=== PATIENT | male | born 1940 | race Caucasian/White ===

== ENCOUNTER 2018-04-29 11:08 | Outpatient (REF) | payer BC, SELFPAY ==
[2018-04-29 21:08] LABS: Abs Immature Grans 0.01 k/cumm (0.0-0.09); Absolute Basophil Count 0.03 k/cumm (0.0-0.2); Absolute Eosinophil Count 0.13 k/cumm (0.0-0.7); Absolute Lymphocyte Count 1.02 k/cumm (1.2-3.4); Absolute Neutrophil Count 2.83 k/cumm (1.2-6.7); Basophils % 0.6; Eosinophils % 2.8; Immature Grans % 0.2; Lymphocytes % 22.1; Mean Corp. HGB Concentration 34.8 g/dL (32.0-36.0); Mean Corpuscular Hemoglobin 29.9 pg (27.0-33.0); Mean Corpuscular Volume 85.8 fL (80-95); Mean Platelet Volume 10.3 fL (8.0-11.0); Neutrophils % 61.3; Platelet Count 180 x1000/uL (130-400); RBC 5.36 m/cumm (4.50-6.00); RBC Distribution Width 13.6 % (11.8-14.1); White Blood Cell Count 4.62 k/cumm (4.4-10.8)
[2018-04-29 21:27] LABS: ALT 48 U/L (12-78); AST 29 U/L (15-37); Albumin 3.9 g/dL (3.4-5.0); Alkaline Phosphatase 77 U/L (46-116); Anion Gap 9.7 mmol/L (3-11); BUN 24 mg/dL (7-18); Bilirubin, Total 0.6 mg/dL (0.2-1.0); CO2 29.3 mmol/L (21.0-32.0); Calcium 9.2 mg/dL (8.5-10.1); Chloride 98 mmol/L (98-107); Estimated GFR 58.71 (mL/min/1.73m2); Glucose 95 mg/dL (70-100); Potassium 3.6 mmol/L (3.5-5.1); Sodium 137 mmol/L (136-145); Total Protein 6.9 g/dL (6.4-8.2)
== END 2018-04-29 11:28 ==
LOC: LBN 11:08
PROVIDERS: PCP Internal Medicine; Visit Provider Internal Medicine
DX: M06.00 Rheumatoid arthritis without rheumatoid factor, unspecified site (principal); Z79.899 Other long term (current) drug therapy
CPT/HCPCS: 80053; 85025

== ENCOUNTER 2018-06-16 09:57 | Outpatient (REF) | payer BC, SELFPAY ==
[2018-06-16 16:32] LABS: BUN 14 mg/dL (7-18); CREATININE 0.92 mg/dL (0.70-1.30); TSH 3.51 uIU/mL (0.358-3.74)
[2018-06-16 16:45] LABS: Bilirubin Negative (Negative); Blood Negative (Negative); Clarity Clear; Glucose Negative (Negative); Ketones Negative (Negative); Leukocyte Esterase Negative (Negative); Nitrite Negative (Negative); Urobilinogen 0.2 EU/dL (Up TO 0.2); pH 6.5 (5-8)
[2018-06-16 16:58] LABS: Bacteria Few HPF (Negative); Epithelial Cells Few HPF (Negative); Other Cells Few Transitional (Negative); WBC 0-2 HPF (0-5)
[2018-06-16 16:59] LABS: C & S Indicated? No; Casts 0-2 Hyaline LPF (Negative); Crystals Negative HPF (Negative); Mucus Moderate (Negative)
== END 2018-06-16 10:17 ==
LOC: NCHCN 09:57
PROVIDERS: PCP Internal Medicine; Visit Provider Internal Medicine
DX: M06.00 Rheumatoid arthritis without rheumatoid factor, unspecified site (principal); R53.82 Chronic fatigue, unspecified
CPT/HCPCS: 84520; 81003; 81015; 82565; 84443

== ENCOUNTER 2018-11-10 11:44 | Outpatient (REF) | payer BC, SELFPAY ==
[2018-11-10 21:47] LABS: Absolute Basophil Count 0.01 k/cumm (0.0-0.2); Absolute Eosinophil Count 0.08 k/cumm (0.0-0.7); Absolute Lymphocyte Count 1.07 k/cumm (1.2-3.4); Absolute Monocyte Count 0.44 k/cumm (0.11-0.7); Absolute Neutrophil Count 2.49 k/cumm (1.2-6.7); Basophils % 0.2; HCT 45.8 % (40.0-50.0); HGB 15.9 g/dL (13.5-17.5); Lymphocytes % 26.2; Mean Corp. HGB Concentration 34.7 g/dL (32.0-36.0); Mean Corpuscular Hemoglobin 30.2 pg (27.0-33.0); Mean Corpuscular Volume 86.9 fL (80-95); Mean Platelet Volume 10.4 fL (8.0-11.0); Monocytes % 10.8; Neutrophils % 60.8; Platelet Count 191 x1000/uL (130-400); RBC 5.27 m/cumm (4.50-6.00); White Blood Cell Count 4.09 k/cumm (4.4-10.8)
[2018-11-10 22:23] LABS: ESR 18 MM/HR (1-20)
[2018-11-10 23:19] LABS: ALT 40 U/L (12-78); AST 25 U/L (15-37); Alkaline Phosphatase 75 U/L (46-116); Anion Gap 9.4 mmol/L (3-11); BUN 19 mg/dL (7-18); Bilirubin, Total 0.6 mg/dL (0.2-1.0); CO2 28.6 mmol/L (21.0-32.0); CREATININE 1.06 mg/dL (0.70-1.30); Calcium 9.1 mg/dL (8.5-10.1); Chloride 99 mmol/L (98-107); Glucose 96 mg/dL (70-100); Potassium 4.2 mmol/L (3.5-5.1); Sodium 137 mmol/L (136-145); TSH 2.51 uIU/mL (0.358-3.74); Total Protein 7.3 g/dL (6.4-8.2)
[2018-11-10 23:32] LABS: C-Reactive Protein 0.38 mg/dL (0.0-0.3); Creatine Kinase 78 U/L (39-308)
== END 2018-11-10 12:04 ==
LOC: NCHCN 11:44
PROVIDERS: PCP Internal Medicine; Visit Provider Internal Medicine
DX: M06.00 Rheumatoid arthritis without rheumatoid factor, unspecified site (principal); Z79.899 Other long term (current) drug therapy; R53.83 Other fatigue; M79.10 Myalgia, unspecified site
CPT/HCPCS: 80053; 82550; 85652; 84443; 85025; 86140

== ENCOUNTER 2019-05-04 21:25 | Outpatient (REF) | payer BC, SELFPAY ==
[2019-05-04 21:43] LABS: Abs Immature Grans 0.01 k/cumm (0.0-0.09); Absolute Basophil Count 0.01 k/cumm (0.0-0.2); Absolute Eosinophil Count 0.07 k/cumm (0.0-0.7); Absolute Lymphocyte Count 0.96 k/cumm (1.2-3.4); Absolute Monocyte Count 0.43 k/cumm (0.11-0.7); Absolute Neutrophil Count 2.14 k/cumm (1.2-6.7); Basophils % 0.3; Eosinophils % 1.9; HCT 47.1 % (40.0-50.0); HGB 16.1 g/dL (13.5-17.5); Immature Grans % 0.3; Lymphocytes % 26.5; Mean Corp. HGB Concentration 34.2 g/dL (32.0-36.0); Mean Corpuscular Hemoglobin 29.6 pg (27.0-33.0); Mean Corpuscular Volume 86.6 fL (80-95); Mean Platelet Volume 10.4 fL (8.0-11.0); Monocytes % 11.9; Neutrophils % 59.1; Platelet Count 233 x1000/uL (130-400); RBC 5.44 m/cumm (4.50-6.00); RBC Distribution Width 13.7 % (11.8-14.1); White Blood Cell Count 3.62 k/cumm (4.4-10.8)
[2019-05-04 21:54] LABS: ALT 41 U/L (16-63); AST 26 U/L (15-37); Alkaline Phosphatase 72 U/L (46-116); BUN 17 mg/dL (7-18); Bilirubin, Total 0.7 mg/dL (0.2-1.0); CREATININE 1.09 mg/dL (0.70-1.30); Calcium 9.3 mg/dL (8.5-10.1); Chloride 98 mmol/L (98-107); Glucose 95 mg/dL (70-100); Potassium 4.2 mmol/L (3.5-5.1); Sodium 137 mmol/L (136-145); Total Protein 7.4 g/dL (6.4-8.2)
== END 2019-05-04 21:45 ==
LOC: LBN 21:25
PROVIDERS: PCP Internal Medicine; Visit Provider Internal Medicine
DX: M06.00 Rheumatoid arthritis without rheumatoid factor, unspecified site (principal); Z79.899 Other long term (current) drug therapy
CPT/HCPCS: 80053; 85025

== ENCOUNTER 2019-08-31 14:09 | Outpatient (REF) | payer BC, SELFPAY ==
[2019-08-31 20:47] LABS: Abs Immature Grans 0.01 k/cumm (0.0-0.09); Absolute Basophil Count 0.01 k/cumm (0.0-0.2); Absolute Eosinophil Count 0.12 k/cumm (0.0-0.7); Absolute Lymphocyte Count 0.92 k/cumm (1.2-3.4); Absolute Monocyte Count 0.61 k/cumm (0.11-0.7); Absolute Neutrophil Count 3.65 k/cumm (1.2-6.7); Basophils % 0.2; Eosinophils % 2.3; HCT 44.1 % (40.0-50.0); HGB 15.6 g/dL (13.5-17.5); Immature Grans % 0.2 %; Lymphocytes % 17.3; Mean Corp. HGB Concentration 35.4 g/dL (32.0-36.0); Mean Corpuscular Hemoglobin 30.6 pg (27.0-33.0); Mean Corpuscular Volume 86.5 fL (80-95); Monocytes % 11.5; Neutrophils % 68.5; Platelet Count 238 x1000/uL (130-400); RBC Distribution Width 13.7 % (11.8-14.1); White Blood Cell Count 5.32 k/cumm (4.4-10.8)
[2019-08-31 21:00] LABS: ALT 43 U/L (16-63); AST 34 U/L (15-37); Albumin 4.1 g/dL (3.4-5.0); Alkaline Phosphatase 78 U/L (46-116); Anion Gap 9.4 mmol/L (3-11); BUN 16 mg/dL (7-18); Bilirubin, Total 0.9 mg/dL (0.2-1.0); CO2 29.6 mmol/L (21.0-32.0); CREATININE 0.93 mg/dL (0.70-1.30); Calcium 9.5 mg/dL (8.5-10.1); Chloride 100 mmol/L (98-107); Glucose 102 mg/dL (74-106); Potassium 3.7 mmol/L (3.5-5.1); Sodium 139 mmol/L (136-145); Total Protein 7.5 g/dL (6.4-8.2)
== END 2019-08-31 14:29 ==
LOC: NCHCN 14:09
PROVIDERS: PCP Internal Medicine; Visit Provider Internal Medicine
DX: D72.819 Decreased white blood cell count, unspecified (principal); R53.83 Other fatigue; M06.00 Rheumatoid arthritis without rheumatoid factor, unspecified site
CPT/HCPCS: 80053; 85025

== ENCOUNTER 2020-03-02 08:28 | Outpatient (REF) | payer BC, SELFPAY ==
[2020-03-02 20:23] LABS: Abs Immature Grans 0.02 10^3/uL (0.0-0.06); Absolute Basophil Count 0.02 10^3/uL (0.0-0.2); Absolute Eosinophil Count 0.14 10^3/uL (0.0-0.7); Absolute Lymphocyte Count 1.13 10^3/uL (1.2-3.4); Absolute Monocyte Count 0.87 10^3/uL (0.1-0.8); Absolute Neutrophil Count 7.04 10^3/uL (1.2-6.7); Basophils % 0.2; Eosinophils % 1.5; HCT 46.5 % (40.0-50.0); HGB 15.5 g/dL (13.5-17.5); Immature Grans % 0.2; Lymphocytes % 12.3; MCH 29.4 pg (27.0-33.0); MCHC 33.3 % (32.0-36.0); MCV 88.1 fL (80-95); MPV 10.5 fL (8.0-11.0); Monocytes % 9.4; Neutrophils % 76.4; Nucleated RBC 0 %; Platelet Count 209 10^3/uL (130-400); RBC 5.28 10^6/uL (4.36-5.78); RDW 12.9 % (11.8-14.1); RDW-SD 41.1 fL; WBC 9.22 10^3/uL (4.4-10.8)
[2020-03-02 21:01] LABS: ALT 44 U/L (16-63); AST 29 U/L (15-37); Alkaline Phosphatase 70 U/L (46-116); BUN 25 mg/dL (7-18); Bilirubin, Total 0.5 mg/dL (0.2-1.0); CREATININE 0.95 mg/dL (0.70-1.30); Calcium 8.9 mg/dL (8.5-10.1); Calculated LDL 118 mg/dL (<100); Chloride 99 mmol/L (98-107); Cholesterol 176 mg/dL (<200); Glucose 105 mg/dL (74-106); HDL Cholesterol 29 mg/dL (40-60); Potassium 3.9 mmol/L (3.5-5.1); Sodium 134 mmol/L (136-145); Total Protein 7.1 g/dL (6.4-8.2); Triglyceride 148 mg/dL (<150)
== END 2020-03-02 08:48 ==
LOC: NCHCN 08:28
PROVIDERS: PCP Internal Medicine; Visit Provider Internal Medicine
DX: D72.819 Decreased white blood cell count, unspecified (principal); I48.0 Paroxysmal atrial fibrillation; M06.00 Rheumatoid arthritis without rheumatoid factor, unspecified site; Z13.220 Encounter for screening for lipoid disorders
CPT/HCPCS: 80053; 80061; 85025

== ENCOUNTER 2020-08-29 07:58 | Outpatient (REF) | payer BC, SELFPAY ==
[2020-08-29 13:13] LABS: Abs Immature Grans 0.01 10^3/uL (0.0-0.06); Absolute Basophil Count 0.02 10^3/uL (0.0-0.2); Absolute Eosinophil Count 0.19 10^3/uL (0.0-0.7); Absolute Lymphocyte Count 1.13 10^3/uL (1.2-3.4); Absolute Neutrophil Count 2.57 10^3/uL (1.2-6.7); Basophils % 0.5; Eosinophils % 4.3; HCT 45.4 % (40.0-50.0); HGB 15.8 g/dL (13.5-17.5); Immature Grans % 0.2; Lymphocytes % 25.6; MCH 30.1 pg (27.0-33.0); MCHC 34.8 % (32.0-36.0); MCV 86.5 fL (80-95); Monocytes % 11.3; Neutrophils % 58.1; Nucleated RBC 0 %; Platelet Count 214 10^3/uL (130-400); RBC 5.25 10^6/uL (4.36-5.78); RDW 13.1 % (11.8-14.1); RDW-SD 41.1 fL; WBC 4.42 10^3/uL (4.4-10.8)
[2020-08-29 13:33] LABS: ALT 57 U/L (16-63); AST 38 U/L (15-37); Albumin 3.7 g/dL (3.4-5.0); Alkaline Phosphatase 82 U/L (46-116); BUN 14 mg/dL (7-18); Bilirubin, Total 0.6 mg/dL (0.2-1.0); CREATININE 0.9 mg/dL (0.70-1.30); Calculated LDL 65 mg/dL (<100); Chloride 101 mmol/L (98-107); Cholesterol 122 mg/dL (<200); Glucose 99 mg/dL (74-106); HDL Cholesterol 34 mg/dL (40-60); Total Protein 7.3 g/dL (6.4-8.2); Triglyceride 118 mg/dL (<150)
[2020-08-29 13:37] LABS: Potassium 3.9 mmol/L (3.5-5.1); Sodium 139 mmol/L (136-145)
== END 2020-08-29 07:59 | disposition home or self-care (01) ==
LOC: NCHCN 07:58
PROVIDERS: PCP Internal Medicine; Visit Provider Internal Medicine
DX: E78.5 Hyperlipidemia, unspecified (principal); I10 Essential (primary) hypertension; Z51.81 Encounter for therapeutic drug level monitoring; R73.03 Prediabetes
CPT/HCPCS: 80053; 80061; 83036; 85025

== ENCOUNTER 2021-02-23 14:39 | Outpatient (REF) | payer BC, SELFPAY ==
[2021-02-23 13:56] LABS: Absolute Basophil Count 0.03 10^3/uL (0.0-0.2); Absolute Eosinophil Count 0.14 10^3/uL (0.0-0.7); Absolute Lymphocyte Count 0.98 10^3/uL (1.2-3.4); Absolute Monocyte Count 0.46 10^3/uL (0.1-0.8); Absolute Neutrophil Count 2.59 10^3/uL (1.2-6.7); Basophils % 0.7; Eosinophils % 3.3; HCT 43.9 % (40.0-50.0); HGB 14.8 g/dL (13.5-17.5); Lymphocytes % 23.3; MCH 29.8 pg (27.0-33.0); MCHC 33.7 % (32.0-36.0); MCV 88.3 fL (80-95); MPV 9.9 fL (8.0-11.0); Neutrophils % 61.7; Nucleated RBC 0 %; Platelet Count 195 10^3/uL (130-400); RBC 4.97 10^6/uL (4.36-5.78); RDW 12.8 % (11.8-14.1); RDW-SD 41.4 fL
[2021-02-23 14:07] LABS: ALT 27 U/L (16-63); AST 22 U/L (15-37); Albumin 3.8 g/dL (3.4-5.0); Alkaline Phosphatase 81 U/L (46-116); BUN 17 mg/dL (7-18); Bilirubin, Total 0.7 mg/dL (0.2-1.0); Calcium 8.9 mg/dL (8.5-10.1); Chloride 102 mmol/L (98-107); Glucose 106 mg/dL (74-106); Potassium 3.6 mmol/L (3.5-5.1); Sodium 141 mmol/L (136-145); Total Protein 6.9 g/dL (6.4-8.2)
== END 2021-02-23 14:40 | disposition home or self-care (01) ==
LOC: NCHCN 14:39
PROVIDERS: PCP Internal Medicine; Visit Provider Internal Medicine
DX: D72.819 Decreased white blood cell count, unspecified (principal); R73.03 Prediabetes; Z51.81 Encounter for therapeutic drug level monitoring
CPT/HCPCS: 80053; 83036; 85025

== ENCOUNTER 2021-06-22 14:40 | Outpatient (REF) | payer BC, SELFPAY ==
[2021-06-22 15:15] LABS: Abs Immature Grans 0.01 10^3/uL (0.0-0.06); Absolute Basophil Count 0.02 10^3/uL (0.0-0.2); Absolute Eosinophil Count 0.09 10^3/uL (0.0-0.7); Absolute Lymphocyte Count 0.99 10^3/uL (1.2-3.4); Absolute Monocyte Count 0.46 10^3/uL (0.1-0.8); Basophils % 0.5; Eosinophils % 2.2; HCT 42.6 % (40.0-50.0); Immature Grans % 0.2; Lymphocytes % 24.3; MCH 29.4 pg (27.0-33.0); MCHC 32.9 % (32.0-36.0); MCV 89.5 fL (80-95); MPV 10.2 fL (8.0-11.0); Monocytes % 11.3; Neutrophils % 61.5; Nucleated RBC 0 %; Platelet Count 190 10^3/uL (130-400); RBC 4.76 10^6/uL (4.36-5.78); RDW 13.7 % (11.8-14.1); RDW-SD 44.5 fL; WBC 4.07 10^3/uL (4.4-10.8)
[2021-06-22 15:49] LABS: ALT 22 U/L (16-63); AST 15 U/L (15-37); Albumin 3.8 g/dL (3.4-5.0); Alkaline Phosphatase 93 U/L (46-116); Anion Gap 8.2 mmol/L (3-11); BUN 17 mg/dL (7-18); Bilirubin, Total 0.5 mg/dL (0.2-1.0); CO2 28.8 mmol/L (21.0-32.0); Calcium 9.1 mg/dL (8.5-10.1); Chloride 103 mmol/L (98-107); Glucose 88 mg/dL (74-106); Potassium 3.7 mmol/L (3.5-5.1); Sodium 140 mmol/L (136-145); Total Protein 7.2 g/dL (6.4-8.2)
== END 2021-06-22 14:41 | disposition home or self-care (01) ==
LOC: NCHCN 14:40
PROVIDERS: PCP Internal Medicine; Visit Provider Internal Medicine
DX: I10 Essential (primary) hypertension (principal); Z51.81 Encounter for therapeutic drug level monitoring
CPT/HCPCS: 80053; 85025

== ENCOUNTER 2021-09-22 12:07 | Outpatient (REF) | payer BC, SELFPAY ==
[2021-09-22 16:08] LABS: Abs Immature Grans 0.01 10^3/uL (0.0-0.06); Absolute Basophil Count 0.02 10^3/uL (0.0-0.2); Absolute Eosinophil Count 0.09 10^3/uL (0.0-0.7); Absolute Lymphocyte Count 1.12 10^3/uL (1.2-3.4); Absolute Monocyte Count 0.48 10^3/uL (0.1-0.8); Absolute Neutrophil Count 2.93 10^3/uL (1.2-6.7); Basophils % 0.4; Eosinophils % 1.9; HCT 42.3 % (40.0-50.0); Immature Grans % 0.2; Lymphocytes % 24.1; MCH 29.5 pg (27.0-33.0); MCHC 33.1 % (32.0-36.0); MCV 89.1 fL (80-95); MPV 10.5 fL (8.0-11.0); Monocytes % 10.3; Neutrophils % 63.1; Nucleated RBC 0 %; Platelet Count 197 10^3/uL (130-400); RBC 4.75 10^6/uL (4.36-5.78); RDW 13.9 % (11.8-14.1); RDW-SD 44.9 fL; WBC 4.65 10^3/uL (4.4-10.8)
[2021-09-22 16:20] LABS: ALT 25 U/L (16-63); AST 17 U/L (15-37); Albumin 3.8 g/dL (3.4-5.0); Alkaline Phosphatase 90 U/L (46-116); Anion Gap 9.1 mmol/L (3-11); BUN 19 mg/dL (7-18); Bilirubin, Total 0.7 mg/dL (0.2-1.0); CO2 27.9 mmol/L (21.0-32.0); Chloride 103 mmol/L (98-107); Glucose 98 mg/dL (74-106); Potassium 4.1 mmol/L (3.5-5.1); Sodium 140 mmol/L (136-145); Total Protein 7.1 g/dL (6.4-8.2)
== END 2021-09-22 12:08 | disposition home or self-care (01) ==
LOC: NCHCN 12:07
PROVIDERS: PCP Internal Medicine; Visit Provider Internal Medicine
DX: I25.10 Atherosclerotic heart disease of native coronary artery without angina pectoris (principal); Z51.81 Encounter for therapeutic drug level monitoring
CPT/HCPCS: 80053; 85025

== ENCOUNTER 2021-09-29 18:09 | Outpatient (REF) | payer BC, SELFPAY ==
[2021-09-29 15:38] LABS: Bilirubin Negative (Negative); Blood Large (Negative); Clarity Sl Cloudy (Clear); Glucose Negative (Negative); Ketones Negative (Negative); Leukocyte Esterase Negative (Negative); Nitrite Negative (Negative); Specific Gravity >= 1.030 (1.005-1.025); Urobilinogen 0.2 EU/dL (Up TO 0.2); pH 6.5 (5-8)
[2021-09-29 15:48] LABS: Bacteria Negative HPF (Negative); C & S Indicated? No; Crystals Negative HPF (Negative); Epithelial Cells Rare HPF (Negative); Mucus Trace (Negative); Other Cells Few Renal (Negative); RBC >50 HPF (0-2); WBC 0-2 HPF (0-5)
[2021-09-29 17:00] LABS: Bacteria Negative HPF (Negative); C & S Indicated? No; Crystals Negative HPF (Negative); Epithelial Cells Negative HPF (Negative); Mucus Negative (Negative); RBC >50 HPF (0-2); WBC Negative HPF (0-5)
== END 2021-09-29 18:10 | disposition home or self-care (01) ==
LOC: NCHCN 18:09
PROVIDERS: PCP Internal Medicine; Visit Provider Internal Medicine
DX: R31.9 Hematuria, unspecified (principal)
CPT/HCPCS: 81003; 81015

== ENCOUNTER 2021-11-24 08:12 | Outpatient (CLI) | payer BC, SELFPAY ==
--- NOTE | 2021-11-24 08:00 | RT.EKG_ITS ---
APPROVED REPORT Exam: Resting ECG Reason for Exam: PAF Patient Location: O HR:60 bpm ECG Measurements Heart Rate 60 AXIS IN 176 P [id number] QRSd 171 QRS -56 QT 492 T 119 QTc 492 Conclusion A-V dual-paced complexes w/ some inhibition...other complexes also detected No further analysis attempted due to paced rhythm Baseline wander in lead(s) V1
== END 2021-11-24 08:13 | disposition home or self-care (01) ==
LOC: DI.CARD 08:13
PROVIDERS: PCP Internal Medicine; Visit Provider Internal Medicine Cardiovascular Disease
DX: I25.10 Atherosclerotic heart disease of native coronary artery without angina pectoris (principal); I48.0 Paroxysmal atrial fibrillation
CPT/HCPCS: 93010

== ENCOUNTER 2022-03-21 09:08 | Outpatient (REF) | payer BC, SELFPAY ==
[2022-03-21 16:53] LABS: Abs Immature Grans 0.01 10^3/uL (0.0-0.06); Absolute Basophil Count 0.02 10^3/uL (0.0-0.2); Absolute Lymphocyte Count 1.11 10^3/uL (1.2-3.4); Absolute Monocyte Count 0.56 10^3/uL (0.1-0.8); Absolute Neutrophil Count 3.94 10^3/uL (1.2-6.7); Basophils % 0.3; Eosinophils % 1.7; HCT 47.9 % (40.0-50.0); Immature Grans % 0.2; Lymphocytes % 19.3; MCH 29.9 pg (27.0-33.0); MCHC 33.4 % (32.0-36.0); MCV 89 fL (80-95); MPV 10.1 fL (8.0-11.0); Monocytes % 9.8; Neutrophils % 68.7; Platelet Count 203 10^3/uL (130-400); RBC 5.36 10^6/uL (4.36-5.78); RDW 13.2 % (11.8-14.1); RDW-SD 42.6 fL; WBC 5.74 10^3/uL (4.4-10.8)
[2022-03-21 17:44] LABS: ALT 24 U/L (16-63); AST 23 U/L (15-37); Albumin 4.2 g/dL (3.4-5.0); Alkaline Phosphatase 91 U/L (46-116); Anion Gap 9.4 mmol/L (3-11); BUN 19 mg/dL (7-18); Bilirubin, Total 0.8 mg/dL (0.2-1.0); CO2 29.6 mmol/L (21.0-32.0); CREATININE 0.9 mg/dL (0.70-1.30); Calcium 9.7 mg/dL (8.5-10.1); Chloride 100 mmol/L (98-107); Glucose 92 mg/dL (74-106); Sodium 139 mmol/L (136-145); Total Protein 7.9 g/dL (6.4-8.2)
== END 2022-03-21 09:09 | disposition home or self-care (01) ==
LOC: NCHCN 09:08
PROVIDERS: PCP Internal Medicine; Visit Provider Internal Medicine
DX: I34.0 Nonrheumatic mitral (valve) insufficiency (principal); Z51.81 Encounter for therapeutic drug level monitoring
CPT/HCPCS: 80053; 85025

== ENCOUNTER 2022-09-19 09:09 | Outpatient (REF) | payer BC, SELFPAY ==
[2022-09-19 21:43] LABS: HCT 43.8 % (40.0-50.0); MCH 30.1 pg (27.0-33.0); MCHC 34.2 % (32.0-36.0); MCV 88 fL (80-95); MPV 10.7 fL (8.0-11.0); Platelet Count 177 10^3/uL (130-400); RBC 4.99 10^6/uL (4.36-5.78); RDW 13.3 % (11.8-14.1); WBC 6.78 10^3/uL (4.4-10.8)
[2022-09-19 22:11] LABS: ALT 23 U/L (16-63); AST 24 U/L (15-37); Albumin 3.8 g/dL (3.4-5.0); Alkaline Phosphatase 73 U/L (46-116); Anion Gap 7.7 mmol/L (3-11); BUN 18 mg/dL (7-18); Bilirubin, Total 0.9 mg/dL (0.2-1.0); CO2 28.3 mmol/L (21.0-32.0); CREATININE 1.1 mg/dL (0.70-1.30); Calcium 9.4 mg/dL (8.5-10.1); Chloride 102 mmol/L (98-107); Estimated GFR 67.02 (mL/min/1.73m2); Glucose 108 mg/dL (74-106); Potassium 3.9 mmol/L (3.5-5.1); Sodium 138 mmol/L (136-145); Total Protein 7.3 g/dL (6.4-8.2)
== END 2022-09-19 09:10 | disposition home or self-care (01) ==
LOC: NCHCN 09:09
PROVIDERS: PCP Internal Medicine; Visit Provider Internal Medicine
DX: I48.0 Paroxysmal atrial fibrillation (principal); Z79.899 Other long term (current) drug therapy
CPT/HCPCS: 80053; 85027

== ENCOUNTER 2023-03-18 13:02 | Outpatient (REF) | payer BC, SELFPAY ==
[2023-03-18 15:46] LABS: HCT 41.9 % (40.0-50.0); HGB 14.3 g/dL (13.5-17.5); MCH 30.1 pg (27.0-33.0); MCHC 34.1 % (32.0-36.0); MCV 88 fL (80-95); MPV 10.3 fL (8.0-11.0); Platelet Count 177 10^3/uL (130-400); RBC 4.75 10^6/uL (4.36-5.78); RDW 12.9 % (11.8-14.1); RDW-SD 41.5 fL; WBC 4.75 10^3/uL (4.4-10.8)
[2023-03-18 16:37] LABS: ALT 23 U/L (16-63); AST 22 U/L (15-37); Albumin 3.7 g/dL (3.4-5.0); Alkaline Phosphatase 72 U/L (46-116); Anion Gap 8.4 mmol/L (3-11); BUN 19 mg/dL (7-18); Bilirubin, Total 0.9 mg/dL (0.2-1.0); CO2 27.6 mmol/L (21.0-32.0); Calcium 9.6 mg/dL (8.5-10.1); Calculated LDL 48 mg/dL (<100); Chloride 102 mmol/L (98-107); Cholesterol 104 mg/dL (<200); Estimated GFR 75.14 (mL/min/1.73m2); Glucose 103 mg/dL (74-106); HDL Cholesterol 36 mg/dL (40-60); Potassium 3.7 mmol/L (3.5-5.1); Sodium 138 mmol/L (136-145); Total Protein 7.2 g/dL (6.4-8.2); Triglyceride 104 mg/dL (<150)
== END 2023-03-18 13:03 | disposition home or self-care (01) ==
LOC: NCHCN 13:02
PROVIDERS: PCP Internal Medicine; Visit Provider Internal Medicine
DX: R73.03 Prediabetes (principal); I48.0 Paroxysmal atrial fibrillation; I25.2 Old myocardial infarction; I34.0 Nonrheumatic mitral (valve) insufficiency; M06.00 Rheumatoid arthritis without rheumatoid factor, unspecified site; I10 Essential (primary) hypertension
CPT/HCPCS: 80053; 80061; 85027

== ENCOUNTER 2023-07-29 11:52 | Outpatient (REF) | payer BC, SELFPAY ==
--- OUTSIDE RECORDS SUMMARY | 2023-07-29 11:54 | XMS_ITS | CCD ---
Author Name Unknown Address [address] [place] [address] [id number] Organization Unknown Address [address] [place], [place] [id number] Care Team Providers Care Clip Bolter And Wrapper Name Role Phone JEWELL KURTZ Attending Physician [phone] JEWELL KURTZ Rounding (Secondary) Physician [phone] Vital Signs Unknown or Not Available. Allergies Allergy Code Allergy Type Reaction Status No Known Drug Allergies 0 No known drug allergies Active Procedures Unknown or Not Available. History of Immunizations Unknown or Not Available. Problems Problem Code Start Date Resolved Date Status Chest pain 89290774 Active NSTEMI 653531496 Active Unstable angina 0917788 Active Results Unknown or Not Available. Active Medications Unknown or Not Available. Medications Administered During Visit Unknown or Not Available. 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 Discharge Instructions You were admitted to [facility] on 05/10/2021 08:56 with a principal diagnosis of Atherosclerotic heart disease of [place] coronary artery without angina pectoris You were discharged from [facility] on 05/10/2021 00:00 Should you have any questions prior to discharge, please contact a member of your healthcare team. If you have left the hospital and have any questions, please contact your primary care physician. Chief Complaint and Reason For Visit Unknown or Not Available. Function Status Unknown or Not Available. Plan of Care Unknown or Not Available. Referral/Transition of Care Unknown or Not Available.
--- OUTSIDE RECORDS SUMMARY | 2023-07-29 11:54 | XMS_ITS | CCD ---
Author Name Unknown Address [address] [place] [address] [phone] Organization Unknown Address [address] [place], [place] [id number] Care Team Providers Care Clinical Appeals Rn Name Role Phone JEWELL KURTZ Attending Physician [phone] JEWELL KURTZ Rounding (Secondary) Physician [phone] Vital Signs Unknown or Not Available. Allergies Allergy Code Allergy Type Reaction Status No Known Drug Allergies 0 No known drug allergies Active Procedures Unknown or Not Available. History of Immunizations Unknown or Not Available. Problems Problem Code Start Date Resolved Date Status Chest pain 72256459 Active NSTEMI 248712148 Active Unstable angina 8811311 Active Results Unknown or Not Available. Active Medications Unknown or Not Available. Medications Administered During Visit Unknown or Not Available. Encounters Encounter Diagnosis Diagnosis Code Start Date Canceled operative procedure [id number] 09/2021 Social History Smoking Status Code Start Date End Date Former smoker [id number] Patient Decision Aids Unknown or Not Available. Discharge Instructions You were admitted to [facility] on 08/25/2021 15:43 with a principal diagnosis of Procedure and treatment not carried out for other reasons You were discharged from [facility] on 08/25/2021 08:20 Should you have any questions prior to [...]
--- OUTSIDE RECORDS SUMMARY | 2023-07-29 11:55 | XMS_ITS | CCD ---
Author Name Unknown Address [address] [place] [address] [id number] Organization Unknown Address [address] [place], [place] [address] Care Team Providers Care Display Designer Outside Name Role Phone LLOYD LEE MD Attending Physician [phone] DUSTIN TORRES MD Er Physician [phone] DUSTIN TORRES MD Rounding (Secondary) Physician [phone] Vital Signs Vital Sign Value Unit Date/Time Recent/Initial ? BMI (Body Mass Index) 31.1 kg/m^2 03/17/2021 11: 46 Initial VS Weight Measured 198.6 lbs 03/17/2021 11:46 Ini tial VS Height 67 in 03/17/2021 11:46 Initial VS BSA (Body Surface Area) 2.06 m^2 03/17/2021 1 1:46 Initial VS BP Systolic 172 mmHg 03/17/2021 11:46 Initial VS BP Diastolic 82 mmHg 03/17/2021 11:46 Initia l VS Respiratory Rate 16 bpm 03/17/2021 11:46 In itial VS Heart Rate 88 bpm 03/17/2021 11:46 Initial VS O2 % BldC Oximetry 97 % 03/17/2021 11:46 Initial VS Body Temperature 36.6 degrees 03/17/2021 11:46 In itial VS Heart Rate 78 bpm 03/17/2021 15:00 Most Rec ent VS BP Systolic 163 mmHg 03/17/2021 15:10 Most Re cent VS BP Diastolic 88 mmHg 03/17/2021 15:10 Most R ecent VS Allergies Allergy Code Allergy Type Reaction Status No Known Drug Allergies 0 No known drug allergies Active Procedures Unknown or Not Available. History of Immunizations Unknown or Not Available. Problems Problem Code Start Date Resolved Date Status Chest pain 68797401 Active NSTEMI 580988014 Active Unstable angina 1549743 Active Results COMPREHENSIVE METABOLIC PANE L (CMP) - Collect Date/Time: 03/17/2021 02:06 Test Name Code Test Result Test Units Test Ref Rang e GLUCOSE 2345-7 135 mg/dL L=70 H=116 BUN 3094-0 15 mg/dL L=6 H=25 CREATININE 2160-0 1.06 mg/dL L=0.67 H=1.17 SODIUM SERUM 2951-2 140 mmol/L L=136 H=145 POTASSIUM SERUM 2823-3 3.1 mmol/L L=3.4 H=5 .2 CHLORIDE SERUM 2075-0 102 mmol/L L=96 H=110 CARBON DIOXIDE (CO2) 2028-9 28 mmol/L L=22 H=34 ANION GAP 66867-1 10.4 mmol/L CALCIUM SERUM 97492-7 9.0 mg/dL L=8.2 H=10. 2 BILIRUBIN TOTAL 1975-2 0.5 mg/dL L=0.0 H=1 .3 ALK. PHOS. 6768-6 94 U/L L=46 H=116 SGOT (AST) 1920-8 19 U/L L=15 H=37 SGPT (ALT) 1742-6 26 U/L L=12 H=78 TOTAL PROTEIN 2885-2 7.6 gm/dL L=6.0 H=8.0 ALBUMIN 1751-7 3.9 gm/dL L=3.4 H=5.0 AGE 80 years eGFR (non-Afr.Amer.) 89607-9 67 mL/min eGFR (Afr-Danish) 54791-7 81 mL/min GLUCOSE FINGER/HEEL CAPILLAR Y - Collect Date/Time: 03/17/2021 06:55 Test Name Code Test Result Test Units Test Ref Rang e GLUCOSE CAP 127 mg/dL L=70 H=116 TROPONIN-I - Collect Date/Ti me: 03/17/2021 13:10 Test Name Code Test Result Test Units Test Ref Rang e TROPONIN-I 56245-8 0.683 ng/mL L=0.000 H=0.06 0 Specimen seq. 12 hr. N/A TROPONIN-I 6 HR. - Collect D ate/Time: 03/17/2021 08:00 Test Name Code Test Result Test Units Test Ref Rang e TROPONIN-I 65896-2 0.049 ng/mL L=0.000 H=0.06 0 TROPONIN-I ADM. - Collect Da te/Time: 03/17/2021 02:06 Test Name Code Test Result Test Units Test Ref Rang e TROPONIN-I 03349-7 <0.017 ng/mL L=0.000 H=0.06 0 CBC W/ DIFFERENTIAL - Collec t Date/Time: 03/17/2021 13:10 Test Name Code Test Result Test Units Test Ref Rang e WBC 6690-2 7.15 th/cmm L=5.00 H=10.00 NEUT % 80.2 % L=40.0 H=80.0 LYMPH % 12.9 % L=10.0 H=50.0 MONO % 88563-1 6.4 % L=2.0 H=12.0 EOS % 0.1 % L=0.0 H=8.0 BASO % 0.3 % L=0.0 H=3.0 IG % 2514-8 0.1 % L=0.0 H=1.1 NRBC % 37420-0 0.0 % L=0.0 H=0.0 NEUT abs count 751-8 5.7 th/cmm L=1.6 H=8. 4 LYMPH abs count 731-0 0.9 th/cmm L=1.5 H=4 .0 MONO abs count 742-7 0.5 th/cmm L=0.2 H=1. 0 EOS abs count 711-2 0.0 th/cmm L=0.0 H=0.5 BASO abs count 704-7 0.0 th/cmm L=0.0 H=0. 2 IG abs count 44978-1 0.0 th/cmm L=0.0 H=0.1 NRBC abs count 53094-8 0.0 mil/cmm L=0.0 H=0. 0 RBC 789-8 5.09 mil/cmm L=4.30 H=6.20 HEMOGLOBIN 718-7 15.1 gm/dL L=13.0 H=17.0 HEMATOCRIT 4544-3 44 % L=45 H=52 MCV 787-2 86 fL L=82 H=92 MCH 785-6 29.7 pg L=27.0 H=31.0 MCHC 786-4 34.4 % L=32.0 H=36.0 RDW-SD 788-0 41.3 fL L=39.0 H=49.0 PLATELET COUNT 777-3 205 th/cmm L=150 H=45 0 CBC W/ DIFFERENTIAL - Collec t Date/Time: 03/17/2021 02:06 Test Name Code Test Result Test Units Test Ref Rang e WBC 6690-2 5.03 th/cmm L=5.00 H=10.00 NEUT % 55.9 % L=40.0 H=80.0 LYMPH % 29.6 % L=10.0 H=50.0 MONO % 22265-4 11.3 % L=2.0 H=12.0 EOS % 2.6 % L=0.0 H=8.0 BASO % 0.4 % L=0.0 H=3.0 IG % 2514-8 0.2 % L=0.0 H=1.1 NRBC % 69090-0 0.0 % L=0.0 H=0.0 NEUT abs count 751-8 2.8 th/cmm L=1.6 H=8. 4 LYMPH abs count 731-0 1.5 th/cmm L=1.5 H=4 .0 MONO abs count 742-7 0.6 th/cmm L=0.2 H=1. 0 EOS abs count 711-2 0.1 th/cmm L=0.0 H=0.5 BASO abs count 704-7 0.0 th/cmm L=0.0 H=0. 2 IG abs count 76086-3 0.0 th/cmm L=0.0 H=0.1 NRBC abs count 81392-8 0.0 mil/cmm L=0.0 H=0. 0 RBC 789-8 5.14 mil/cmm L=4.30 H=6.20 HEMOGLOBIN 718-7 15.4 gm/dL L=13.0 H=17.0 HEMATOCRIT 4544-3 44 % L=45 H=52 MCV 787-2 86 fL L=82 H=92 MCH 785-6 30.0 pg L=27.0 H=31.0 MCHC 786-4 34.8 % L=32.0 H=36.0 RDW-SD 788-0 40.8 fL L=39.0 H=49.0 PLATELET COUNT 777-3 185 th/cmm L=150 H=45 0 PT PROTHROMBIN TIME - Collec t Date/Time: 03/17/2021 13:10 Test Name Code Test Result Test Units Test Ref Rang e PROTIME 5902-2 10.4 seconds L=9.3 H=11.4 INR 54604-5 1.02 L=2.00 H=3.00 PTT PARTIAL THROMBOPLASTIN T SARAH - Collect Date/Time: 03/17/2021 13:10 Test Name Code Test Result Test Units Test Ref Rang e PTT 91092-3 28.1 seconds L=24.5 H=32.8 GREGG JUÁREZ RHEONIX - [facility] ct Date/Time: 03/17/2021 03:20 Test Name Code Test Result Test Units Test Ref Rang e SOURCE= Anterior nasal N/A Tier- INPATIENT/ED N/A SARS COV2 RNA: 39610-8 NEGATIVE N/A REFERENCE RANGE: NEGAT Active Medications Medications Administered During Visit Medication Dose Units Frequency Route Date/Time of Last Dose HYDROCHLOROTHIAZIDE TABLET: 25MG 25 MG DAILY PO 03/17/2021 13:30 AmLODIPine TABLET: 10MG 10 MG DAILY PO 03/17/2021 13:30 LISINOPRIL TABLET: 20MG 20 MG DAILY PO 03/17/2021 13:30 NITROGLYCERIN OINTMENT FOILP ACK 2%:1GRAM 1 INCH Q6H TOP 03/17/2021 12:4 1 NITROGLYCERIN TABLET SL ( T): 0.4MG 0.4 MG PRN Q5MIN SL 03/17/2021 12:4 1 HEPARIN INJ SDV: 5,000 UNITS/ML 5404 UNITS X1 IVP 03/17/2021 13:32 HEPARIN PREMIX IV BA,000UNITS/250ML 1100 UNITS CONT 03/17/2021 13:34 CLOPIDOGREL TABLET: 300MG 300 MG X1 PO 03/17/2021 14:42 NITROGLYCERIN PREMIX IV: 100MG/250ML CONT 03/17/2021 14:3 9 Encounters Encounter Diagnosis Diagnosis Code Start Date Non-ST elevation (NSTEMI) myocardial infarction I214 03/17/2021 Social History Smoking Status Code Start Date End Date Former smoker [id number] Patient Decision Aids Unknown or Not Available. Discharge Instructions You were admitted to [facility] on 03/17/2021 08:31 with a principal diagnosis of Non-ST elevation (NSTEMI) myocardial infarction You had the following tests done:CBC W/ DIFFERENTIALPT PROTHROMBIN TIMEPTT PARTIAL THROMBOPLASTIN RJACHYFLIGOP-EJTWAINZC-Q 6 HR.GLUCOSE FINGER/HEEL CAPILLARYCOPLEY COVID RHEONIXCBC W/ DIFFERENTIALCOMPREHENSIVE METABOLIC PANEL (CMP)TROPONIN-I ADM. You were discharged from [facility] on 03/17/2021 15:22 Should you have any questions prior to discharge, please contact a member of your healthcare team. If you have left the hospital and have any questions, please contact your primary care physician. Chief Complaint and Reason For Visit Chief Complaint Date of Onset CHEST PAIN Function Status Unknown or Not Available. Plan of Care Unknown or Not Available. Referral/Transition of Care Unknown or Not Available.
--- OUTSIDE RECORDS SUMMARY | 2023-07-29 11:55 | XMS_ITS | CCD ---
Author Name Unknown Address [address] [place] [address] [phone] Organization Unknown Address [address] [place], [place] [phone] Care Team Providers Care Social Professionals Name Role Phone JERARDO ORELLANA, JEWELL Dewitt Attending Physician [phone] Vital Signs Unknown or Not Available. Allergies Allergy Code Allergy Type Reaction Status No Known Drug Allergies 0 No known drug allergies Active Procedures Unknown or Not Available. History of Immunizations Unknown or Not Available. Problems Problem Code Start Date Resolved Date Status Chest pain 82228453 Active NSTEMI 835442233 Active Unstable angina 3706665 Active Results Unknown or Not Available. Active Medications Unknown or Not Available. Medications Administered During Visit Unknown or Not Available. Encounters Encounter Diagnosis Diagnosis Code Start Date Essential (primary) hypertension I10 03/23/2021 Social History Smoking Status Code Start Date End Date Former smoker 4388502 Patient Decision Aids Unknown or Not Available. Discharge Instructions You were admitted to on 03/23/2021 13:55 with a principal diagnosis of Essential (primary) hypertension You were discharged from on 03/23/2021 13:56 Should you have any questions prior to [...]
--- OUTSIDE RECORDS SUMMARY | 2023-07-29 11:55 | XMS_ITS | CCD ---
Author Name Unknown Address [address] [place] [address] [phone] Organization Unknown Address [address] [place], [place] [id number] Care Team Providers Care Gallery Or Museum Guide Name Role Phone MABEL GALLO Attending Physician [phone] Vital Signs Unknown or Not Available. Allergies Allergy Code Allergy Type Reaction Status No Known Drug Allergies 0 No known drug allergies Active Procedures Unknown or Not Available. History of Immunizations Unknown or Not Available. Problems Problem Code Start Date Resolved Date Status Chest pain 23623240 Active NSTEMI 041538184 Active Unstable angina 7644836 Active Results Unknown or Not Available. Active Medications Unknown or Not Available. Medications Administered During Visit Unknown or Not Available. Encounters Encounter Diagnosis Diagnosis Code Start Date Other forms of dyspnea R0609 Social History Smoking Status Code Start Date End Date Former smoker 4392531 Patient Decision Aids Unknown or Not Available. Discharge Instructions You were admitted to [facility] on 03/07/2021 10:12 with a principal diagnosis of Other forms of dyspnea You were discharged from [facility] on 03/07/2021 10:12 Should you have any questions prior to [...]
[2023-08-04 10:57] LABS: Testosterone, Free 14.5 ng/dL (2.88-10.5); Testosterone, Total 548 ng/dL (240-950)
== END 2023-07-29 11:53 | disposition home or self-care (01) ==
LOC: NCHCN 11:52
PROVIDERS: PCP Internal Medicine; Visit Provider Internal Medicine
DX: R53.82 Chronic fatigue, unspecified (principal)
CPT/HCPCS: 82533; 84402; 84403

== ENCOUNTER 2023-08-26 18:20 | Outpatient (REF) | payer BC, SELFPAY ==
[2023-08-26 14:53] LABS: HCT 41.1 % (40.0-50.0); HGB 14.4 g/dL (13.5-17.5); MCH 30.8 pg (27.0-33.0); MCV 88 fL (80-95); MPV 10.5 fL (8.0-11.0); Platelet Count 183 10^3/uL (130-400); RBC 4.68 10^6/uL (4.36-5.78); RDW 13.3 % (11.8-14.1); RDW-SD 42.6 fL; WBC 4.84 10^3/uL (4.4-10.8)
[2023-08-26 14:56] LABS: ALT 25 U/L (16-63); AST 25 U/L (15-37); Albumin 3.6 g/dL (3.4-5.0); Alkaline Phosphatase 84 U/L (46-116); BUN 16 mg/dL (7-18); Bilirubin, Total 0.8 mg/dL (0.2-1.0); CREATININE 1.1 mg/dL (0.70-1.30); Calcium 9.1 mg/dL (8.5-10.1); Chloride 103 mmol/L (98-107); Estimated GFR 66.61 (mL/min/1.73m2); Glucose 132 mg/dL (74-106); Potassium 3.6 mmol/L (3.5-5.1); Sodium 138 mmol/L (136-145); Total Protein 7.2 g/dL (6.4-8.2)
== END 2023-08-26 18:21 | disposition home or self-care (01) ==
LOC: NCHCN 18:20
PROVIDERS: PCP Internal Medicine; Visit Provider Internal Medicine
DX: M06.00 Rheumatoid arthritis without rheumatoid factor, unspecified site (principal)
CPT/HCPCS: 80053; 85027

== ENCOUNTER 2023-09-26 12:14 | Outpatient (REF) | payer BC, SELFPAY ==
[2023-09-26 15:01] LABS: Anion Gap 10.5 mmol/L (3-11); BUN 25 mg/dL (7-18); CO2 28.5 mmol/L (21.0-32.0); CREATININE 1.1 mg/dL (0.70-1.30); Calcium 9.4 mg/dL (8.5-10.1); Chloride 102 mmol/L (98-107); Estimated GFR 66.61 (mL/min/1.73m2); Glucose 113 mg/dL (74-106); Potassium 3.7 mmol/L (3.5-5.1); Sodium 141 mmol/L (136-145)
== END 2023-09-26 12:15 | disposition home or self-care (01) ==
LOC: NCHCN 12:14
PROVIDERS: PCP Internal Medicine; Visit Provider Internal Medicine
DX: I10 Essential (primary) hypertension (principal)
CPT/HCPCS: 80048

== ENCOUNTER 2024-02-21 16:56 | Outpatient (REF) | payer BC, SELFPAY ==
[2024-02-21 14:38] LABS: HCT 43.4 % (40.0-50.0); HGB 14.6 g/dL (13.5-17.5); MCH 30.2 pg (27.0-33.0); MCHC 33.6 % (32.0-36.0); MCV 90 fL (80-95); MPV 10.1 fL (8.0-11.0); Platelet Count 179 10^3/uL (130-400); RBC 4.83 10^6/uL (4.36-5.78); RDW 13.4 % (11.8-14.1); RDW-SD 44.2 fL; WBC 4.41 10^3/uL (4.4-10.8)
[2024-02-21 14:59] LABS: Hemoglobin A1C 5.8 % (<5.7)
[2024-02-21 15:00] LABS: ALT 24 U/L (16-63); AST 21 U/L (15-37); Alkaline Phosphatase 97 U/L (46-116); BUN 17 mg/dL (7-18); Bilirubin, Total 0.82 mg/dL (0.2-1.0); Calcium 9.5 mg/dL (8.5-10.1); Chloride 100 mmol/L (98-107); Estimated GFR 74.68 (mL/min/1.73m2); Glucose 111 mg/dL (74-106); Potassium 3.4 mmol/L (3.5-5.1); Sodium 138 mmol/L (136-145); Total Protein 7.7 g/dL (6.4-8.2)
== END 2024-02-21 16:57 | disposition home or self-care (01) ==
LOC: NCHCN 16:56
PROVIDERS: PCP Internal Medicine; Visit Provider Internal Medicine
DX: I10 Essential (primary) hypertension (principal); Z51.81 Encounter for therapeutic drug level monitoring
CPT/HCPCS: 80053; 85027; 83036

== ENCOUNTER 2024-03-02 08:14 | Outpatient (CLI) | payer BC, SELFPAY ==
--- NOTE | 2024-03-02 08:00 | RT.EKG_ITS ---
APPROVED REPORT Exam: Resting ECG Reason for Exam: cad Patient Location: O HR:70 bpm ECG Measurements Heart Rate 70 AXIS FL 181 P [id number] QRSd 178 QRS -53 QT 484 T 117 QTc 523 Conclusion AV paced rhythm PVC
== END 2024-03-02 08:15 | disposition home or self-care (01) ==
LOC: DI.CARD 08:15
PROVIDERS: PCP Internal Medicine; Visit Provider Internal Medicine Cardiovascular Disease
DX: I25.10 Atherosclerotic heart disease of native coronary artery without angina pectoris (principal); I48.0 Paroxysmal atrial fibrillation
CPT/HCPCS: 93010

== ENCOUNTER 2024-05-29 13:43 | Outpatient (REF) | payer BC, SELFPAY ==
[2024-05-29 15:38] LABS: HCT 43.6 % (40.0-50.0); HGB 14.8 g/dL (13.5-17.5); MCH 30.7 pg (27.0-33.0); MCHC 33.9 % (32.0-36.0); MCV 91 fL (80-95); MPV 10.1 fL (8.0-11.0); Platelet Count 172 10^3/uL (130-400); RBC 4.82 10^6/uL (4.36-5.78); RDW 13.4 % (11.8-14.1); RDW-SD 43.8 fL
[2024-05-29 15:50] LABS: ALT 20 U/L (16-63); AST 21 U/L (15-37); Albumin 3.8 g/dL (3.4-5.0); Alkaline Phosphatase 98 U/L (46-116); Anion Gap 7.7 mmol/L (3-11); BUN 23 mg/dL (7-18); Bilirubin, Total 0.72 mg/dL (0.2-1.0); CO2 31.3 mmol/L (21.0-32.0); CREATININE 1.2 mg/dL (0.70-1.30); Calcium 9.4 mg/dL (8.5-10.1); Chloride 102 mmol/L (98-107); Glucose 91 mg/dL (74-106); Sodium 141 mmol/L (136-145); Total Protein 7.4 g/dL (6.4-8.2)
== END 2024-05-29 13:44 | disposition home or self-care (01) ==
LOC: NCHCN 13:43
PROVIDERS: PCP Internal Medicine; Visit Provider Internal Medicine
DX: M06.0A Rheumatoid arthritis without rheumatoid factor, other specified site (principal)
CPT/HCPCS: 80053; 85027

== ENCOUNTER 2025-01-29 15:41 | Outpatient (REF) | payer BC, SELFPAY ==
[2025-01-29 21:17] LABS: HCT 37.6 % (40.0-50.0); HGB 12.7 g/dL (13.5-17.5); MCH 30.2 pg (27.0-33.0); MCHC 33.8 % (32.0-36.0); MCV 90 fL (80-95); MPV 10.3 fL (8.0-11.0); Platelet Count 161 10^3/uL (130-400); RBC 4.20 10^6/uL (4.36-5.78); RDW 14.1 % (11.8-14.1); RDW-SD 45.4 fL; WBC 4.32 10^3/uL (4.4-10.8)
[2025-01-29 21:30] LABS: ALT 21 U/L (16-63); AST 25 U/L (15-37); Albumin 3.5 g/dL (3.4-5.0); Alkaline Phosphatase 71 U/L (46-116); Anion Gap 7.7 mmol/L (3-11); BUN 23 mg/dL (7-18); Bilirubin, Total 1.1 mg/dL (0.2-1.0); CO2 28.3 mmol/L (21.0-32.0); Calcium 8.9 mg/dL (8.5-10.1); Chloride 102 mmol/L (98-107); Estimated GFR 45.62 (mL/min/1.73m2); Glucose 100 mg/dL (74-106); Potassium 3.8 mmol/L (3.5-5.1); Sodium 138 mmol/L (136-145); Total Protein 6.7 g/dL (6.4-8.2)
[2025-01-29 21:37] LABS: Hemoglobin A1C 5.7 % (<5.7)
== END 2025-01-29 15:42 | disposition home or self-care (01) ==
LOC: NCHCN 15:41
PROVIDERS: PCP Internal Medicine; Visit Provider Internal Medicine
DX: Z51.81 Encounter for therapeutic drug level monitoring (principal); R73.03 Prediabetes
CPT/HCPCS: 80053; 85027; 83036

== ENCOUNTER 2025-02-09 01:39 | Outpatient (CLI) | payer BC, SELFPAY ==
--- NOTE | 2025-02-09 | DI.CT_ITS ---
Exam(s) CT ABDOMEN PELVIS W EXAM: CT ABDOMEN PELVIS W CLINICAL HISTORY: EPIGASTRIC PAIN, R10.13 WORSENING X 1 MO. TECHNIQUE: Imaging Protocol: Axial computed tomography images with coronal and sagittal reformatted images were created and reviewed CONTRAST MATERIAL: Intravenous: Omnipaque-350 75cc Oral: Yes. Oral contrast was also administered for bowel opacification. COMPARISON: No exams were available for comparison FINDINGS: VISUALIZED LUNG BASES: No nodules nor pleural effusions evident. Cardiac pacemaker wires are noted. ABDOMEN: GI: There is no ascites.. No evidence of hiatal hernia nor obvious abnormality in the stomach and duodenum. There are no esophageal varices. The oral contrast has reached the distal colon at the time of image acquisition. There is no evidence of small-bowel obstruction. No free air. No abscess. It is noted that there is interposition of the colon between the liver and the anterior abdominal wall but no significant transition point exists at this level. Appendix is not seen is separate structure but there are no obvious signs of acute appendicitis. No colitis. There are no ischemic appearing bowel loops. There is also no evidence of diverticular disease in the colon, including the sigmoid. There is mild thickening of the left side of the rectum. LIVER: There are no focal hepatic lesions evident. No dilated intrahepatic ducts. GALLBLADDER/BILIARY: Subtle suggestion of tiny gallstones. The gallbladder wall appears slightly indistinct and consistent with possible recent cholecystitis. CBD is not dilated. PANCREAS: There few calcifications in the anterior aspect of the pancreatic head. There is no pancreatic mass nor dilatation pancreatic duct. No peripancreatic fat streaking nor peripancreatic fluid collections. SPLEEN: Spleen is not enlarged. No obvious intrasplenic lesions. Splenic and portal veins are patent. ADRENALS: There are no significant adrenal masses. KIDNEYS:There is a small cyst in the anterior cortex of the left kidney which measures 1 cm. Does not require further workup. There are no solid renal lesions. No calculi nor hydronephrosis.. ABDOMINAL AORTA: Abdominal aorta is calcified but not enlarged. Common iliac arteries are also calcified LYMPH NODES:There is no retroperitoneal nor paraaortic adenopathy. ABDOMINAL WALL: There is a fat only containing right inguinal hernia. GI: There is no evidence of bowel obstruction, free air, nor abscess. PELVIS: GI: No evidence of appendicitis.No evidence of sigmoid diverticulitis. LYMPH NODES: There is no intrapelvic nor inguinal adenopathy. REPRODUCTIVE: Prostate is not enlarged. Seminal vesicles unremarkable. URINARY BLADDER: There is mild uniform thickening of the urinary bladder wall. OSSEOUS: No fractures and no significant osseous lesions. Multilevel disc space narrowing. No listhesis. IMPRESSION: 1. There appear to be tiny gallstones and the gallbladder wall appears slightly indistinct but without pericholecystic fluid. Correlation with any clinical signs of recent acute cholecystitis recommended. The CBD is not dilated. There are no radiopaque calculi in the CBD. No dilated intrahepatic ducts. Recommend follow-up gallbladder ultrasound. 2. No obvious findings in the stomach and duodenal C-loop in this patient with epigastric pain. No prominent hiatal hernia evident. No varices. No ascites. 3. There is mild uniform thickening of the urinary bladder wall. Either related to cystitis or an element of chronic calculus obstruction. Prostate gland itself does not appear significantly enlarged. 4. There is slight asymmetric thickening on the left side of the rectum. RADIATION DOSE DELIVERED: 544.44mGy.cm Total DLP DATA REPOSITORY: All CT scans at this facility are submitted to the National Radiology Data Registry (NRDR) Dose Index Registry (DIR) with the [employer] (ACR). RADIATION OPTIMIZATION: All CT scans at this facility use at least one of these dose optimization techniques: automated exposure control; mA and/or kV adjustment per patient size (includes targeted exams where dose is matched to clinical indication); or iterative reconstruction.
[2025-02-09] MEDS: Barium Sulfate 2% W/V-Berry Smoothie 450 ML BTL PO (10:46)
[2025-02-09] MEDS: Barium Sulfate 2% W/V-Creamy Vanilla Smoothie 450 ML BTL PO (10:46)
[2025-02-09] MEDS: Normal Saline Flush 10 ML SYR IVP (13:05)
[2025-02-09] MEDS: Normal Saline - Diluent 50 ML VIAL IJ (13:05)
[2025-02-09] MEDS: Omnipaque 350 MG/ML 500 ML BTL-Imaging package IJ (13:07)
== END 2025-02-09 01:59 ==
PROVIDERS: PCP Internal Medicine; Visit Provider Internal Medicine
DX: R10.13 Epigastric pain (principal); R93.3 Abnormal findings on diagnostic imaging of other parts of digestive tract
CPT/HCPCS: 74177

== ENCOUNTER 2025-02-26 15:11 | Outpatient (REF) | payer BC, SELFPAY ==
[2025-02-26 20:53] LABS: HCT 39.5 % (40.0-50.0); HGB 13.3 g/dL (13.5-17.5); MCH 30.0 pg (27.0-33.0); MCHC 33.7 % (32.0-36.0); MCV 89 fL (80-95); MPV 9.8 fL (8.0-11.0); Platelet Count 161 10^3/uL (130-400); RBC 4.43 10^6/uL (4.36-5.78); RDW 13.4 % (11.8-14.1); RDW-SD 43.3 fL; WBC 5.05 10^3/uL (4.4-10.8)
[2025-02-26 21:08] LABS: ALT 20 U/L (16-63); AST 27 U/L (15-37); Albumin 3.8 g/dL (3.4-5.0); Alkaline Phosphatase 88 U/L (46-116); Anion Gap 4.2 mmol/L (3-11); BUN 20 mg/dL (7-18); Bilirubin, Total 0.8 mg/dL (0.2-1.0); CO2 31.8 mmol/L (21.0-32.0); Calcium 9.5 mg/dL (8.5-10.1); Chloride 100 mmol/L (98-107); Estimated GFR 59.63 (mL/min/1.73m2); Glucose 94 mg/dL (74-106); Potassium 3.8 mmol/L (3.5-5.1); Sodium 136 mmol/L (136-145); Total Protein 7.0 g/dL (6.4-8.2)
== END 2025-02-26 15:12 | disposition home or self-care (01) ==
LOC: NCHCN 15:11
PROVIDERS: PCP Internal Medicine; Visit Provider Internal Medicine
DX: D64.9 Anemia, unspecified (principal); N28.9 Disorder of kidney and ureter, unspecified
CPT/HCPCS: 80053; 85027

== ENCOUNTER 2025-03-12 02:08 | Outpatient (CLI) | payer BC, SELFPAY ==
--- NOTE | 2025-03-12 13:30 | DI.US_ITS ---
APPROVED REPORT EXAM: Comprehensive 2D, Doppler, and color-flow Echocardiogram Patient Location: Out-Patient Elevator Adjuster: Trav Gallagher RDCS (AE) Indications: MV regurgitation Other Information Study Quality: Adequate Conclusion Concentric left ventricular hypertrophy. Ejection fraction is 55%. Septal motion suggests an interventricular conduction delay. Right ventricle is mildly dilated with preserved systolic function Both atria are enlarged Aortic valve is sclerotic and trileaflet with mild regurgitation Normal mitral valve with moderate eccentric mitral regurgitation Moderate tricuspid regurgitation. Estimated right ventricular systolic pressure is 50 mmHg Dilated ascending aorta measuring 3.92 cm Wall motion Left Ventricle The left ventricle is normal size. The overall left ventricular systolic function appears normal. Concentric left ventricular hypertrophy There is no ventricular septal defect visualized. LVEF is 55%. Right Ventricle Right ventricle is mildly dilated. Right ventricular systolic function is grossly normal. Pacemaker lead is present in the right ventricle. Atria Left atrium is severely dilated. Right atrium is severely dilated. The interatrial septum is intact with no evidence for an atrial septal defect. Aortic Valve The aortic valve is sclerotic. Aortic valve is trileaflet. There is no aortic valvular stenosis. mild aortic regurgitation. Mitral Valve The mitral valve is normal in structure. No evidence of mitral valve stenosis. Moderate eccentric mitral regurgitation Tricuspid Valve The tricuspid valve is normal in structure. There is no tricuspid valve stenosis. Moderate tricuspid regurgitation. The RVSP is 50.5 mmHg. Pulmonic Valve The pulmonary valve is normal in structure. There is no pulmonic valvular stenosis. Moderate pulmonic regurgitation. Great Vessels The aortic root is normal in size. The ascending aorta is moderately dilated. Aortic arch is normal in caliber. IVC is normal in size and collapses >50% with inspiration. Pericardium There is no pericardial effusion. 2D Dimensions IVSD d PLAX 0.87 cm M: 0.6-1.2 Ao Root d 3.09 cm M: 3.1 - 3.7 LVPW d PLAX 0.86 cm M: 0.6 - 1.2 Ao Asc Diam d 3.92 cm M: 2.6 - 3.4 LVID d PLAX 5.97 cm M: 4.2 - 5.8 LVDs 4.76 cm M: 2.5 - 4.0 LV EF Teichholz 40.8 % FS 20.31 % LV EDV (Teich) 177.8 mL LV ESV (Teich) 105.2 mL Stroke Vol Index (Teich) 35.94 M-Mode TAPSE 2.52 cm (M/F) >1.7 Auto EF LV EDV A4C 151.8 mL LV EDV A2C 167.9 mL LV EDV BP 158.5 mL LV ESV A4C 86.8 mL LV ESV A2C 101.2 mL LV ESV BP 95.7 mL LVEF(%) A4C 42.8 % LVEF(%) A2C 39.7 % LVEF(%) BP 39.6 % LV SV A4C 65.0 ml LV SV A2C 66.7 ml LV SV BP 62.8 ml LV CO A4C 22.9 L/min LV CO A2C 23.5 L/min LV CO BP 23.2 L/min HR A4C 352.96 BPM HR A2C 352.97 BPM LV EDV Index (BP) LA Volume LA Length A4C 5.9 cm LA Length A2C 5.2 cm LA Area A4C s 25.50 cm2 LA Area A2C s 17.82 cm2 LA Vol A4C A-L 93.90 mL LA Vol A2C A-L 51.65 mL LA Vol Biplane A-L 73.9 mL LA Vol/BSA A4C A-L LA Vol/BSA A2C A-L LA Vol/BSA BP A-L 36.6 mL/m2 LA Vol A4C MOD 88.3 mL LA Vol A2C MOD 47.0 mL LA Vol BP MOD 67.9 mL RA Volume RA Area A4C 22.5 cm2 RA ESV A4C (A-L) 66.2mL RA Vol/BSA A4C A-L RA Length A4C 6.5 cm RA ESV A4C (MOD) 61.1mL LV Diastology MV E' medial 0.082 (>0.07 m/s) MV E Vmax 0.89 (0.4-1.3 m/s) MV E/E' MED 10.85 (<14) MV A Vmax 0.45 (0.4-1.3 m/s) E/A Ratio 2.0 Aortic Valve AoV Vmax 1.54 m/s LVOT Vmax 0.85 m/s AoV Peak Grad 17.6 mmHg LVOT Peak Grad 2.9 mmHg AoV Area (Vmax) 2.01 cm2 LVOT VTI 0.174 m AoV VTI 0.307 m LVOT Mean Grad 1.4 mmHg AoV Mean [place]. 1.09 m/s LVOT SV 63.36 mL AoV Mean Grad 5.6 mmHg LVOT Diam s 2.15 cm AoV Area (VTI) 2.06 cm2 AV Regurg Peak Gr. 9.47 mmHg Velocity Ratio 0.55 AR Decel [place] 1.9m/sec2 AR DT 1349 msec AR PHT 391 msec AR Vmax 2.54 m/s Mitral Valve MV DT 188 (160-240 msec) MR Vmax 6.05 m/s MV Vmax TIPS 0.93 m/s MR VTI 2.234 m MV Mean Grad 1.2 (<2mmHg) MR Peak Grad 146.2 mmHg MV VTI 0.301 m MR Mean Grad 96.7 mmHg MR PISA Radius 0.58 cm MR Aliasing Velocity 0.30 m/s Pulmonary Valve PV Vmax 1.00 (0.5-1.5 m/s) RVOT Vmax 0.38 m/s PV Peak Grad 4.0 mmHg RVOT Peak Gr. 0.6 mmHg PV Mean [place] 0.68 m/s RVOT VTI 0.076 m PV Mean Grad 2.1 mmHg RVOT Mean Gr. 0.3 mmHg Tricuspid Valve RA Pressure 3.00 mmHg TR Vmax 3.45 m/s TR Peak Grad 47.4 mmHg RVSP (TR) 50.5 mmHg
== END 2025-03-12 02:28 ==
LOC: DI 02:08
PROVIDERS: PCP Internal Medicine; Visit Provider Internal Medicine Cardiovascular Disease
DX: I51.7 Cardiomegaly (principal)
CPT/HCPCS: 93306